=== PATIENT | female | born 1995 | race Caucasian/White ===

== ENCOUNTER 2021-04-07 21:33 | Outpatient (CLI) | payer MEDICAID ==
[~2021-04-07] VITALS: Ht 160 cm; Wt 69.0 kg
[2021-04-07 22:00] VITALS: BP 113/59
[2021-04-07 22:21] LABS: MICROSCOPIC INDICATED
[2021-04-07] MEDS ORDERED: CYCLOBENZAPRINE 10 MG TABLET PO ONE (23:30)
== END 2021-04-07 23:15 | disposition home or self-care (01) ==
LOC: LDOP 21:33
PROVIDERS: ATTEND Obstetrics & Gynecology
DX: O26.893 Other specified pregnancy related conditions, third trimester (principal); M54.5 Low back pain; Z3A.34 34 weeks gestation of pregnancy
CPT/HCPCS: 59025; 81001; 87086

== ENCOUNTER 2021-05-11 01:20 | Inpatient (IN) | payer MEDICAID ==
[~2021-05-11] VITALS: Ht 162.6 cm; Wt 74.0 kg
[2021-05-11 01:20] VITALS: BP 131/75
[2021-05-11] MEDS ORDERED: NEWBORN KIT ONE (01:42)
[2021-05-11] MEDS ORDERED: LIDOCAINE 1%, 20ML ONE (01:42)
[2021-05-11] MEDS ORDERED: MISOPROSTOL 200 MCG TABLET ONE (01:42)
[2021-05-11] MEDS: LACTATED RINGERS 1,000 ML IV SCH ×3 (01:50→17:23)
[2021-05-11] MEDS ORDERED: PLEASE ENTER HEIGHT AND WEIGHT MC SCH (02:00)
[2021-05-11] MEDS ORDERED: OXYTOCIN 30U/ 0.9% NaCL 500ML 500 ML IV PRN (02:00)
[2021-05-11] MEDS ORDERED: FENTANYL PF 100 MCG/2ML IV PRN (02:00)
[2021-05-11] MEDS ORDERED: OXYTOCIN 30U/ 0.9% NaCL 500ML 500 ML IV ONE (02:00)
[2021-05-11] MEDS ORDERED: TERBUTALINE 1 MG/ML, 1ML IVPush PRN (02:00)
[2021-05-11] MEDS ORDERED: ONDANSETRON 2MG/ML, 2ML IVPush PRN (02:00)
[2021-05-11] MEDS ORDERED: TERBUTALINE 1 MG/ML, 1ML SQ PRN (02:00)
[2021-05-11] MEDS ORDERED: CALCIUM CARBONATE 500 MG TAB.CHEW PO PRN ×2 (02:00→09:30)
[2021-05-11] MEDS ORDERED: D5%-LACTATED RINGERS 1,000 ML IV SCH (02:00)
[2021-05-11 02:02] LABS: BASOPHILS % (AUTO) 1 % (0-1); EOSINOPHILS % (AUTO) 0 % (1-7); LYMPHOCYTES % (AUTO) 20 % (22-44); MEAN CORPUSCULAR HEMOGLOBIN 28.5 pg (27.0-34.8); MEAN CORPUSCULAR HGB CONC 33.8 g/dL (32.4-35.8); MEAN PLATELET VOLUME 8.9 fL (7.4-10.4); MONOCYTES % (AUTO) 7 % (2-9); NEUTROPHILS % (AUTO) 72 % (42-75); PLATELET COUNT 296 x10^3/uL (130-400); RED BLOOD COUNT 4.15 x10^6/uL (3.82-5.3); RED CELL DISTRIBUTION WIDTH 14.1 % (9.6-15.2)
[2021-05-11] MEDS: FENTANYL PF 100 MCG/2ML IVPush PRN ×2 (03:09→05:12)
[2021-05-11] MEDS ORDERED: FENTANYL/BUPIV./NS/PF 250 ML EPIDCONT ONE (05:38)
[2021-05-11] MEDS ORDERED: BUPIVACAINE 0.25% ONE (06:05)
[2021-05-11] MEDS ORDERED: MISOPROSTOL 200 MCG TABLET SL PRN (09:30)
[2021-05-11] MEDS ORDERED: OXYTOCIN 30U/ 0.9% NaCL 500ML 500 ML IV SCH (09:30)
[2021-05-11] MEDS ORDERED: SIMETHICONE 80 MG CHEW TAB PO PRN (09:30)
[2021-05-11] MEDS: PRENATAL VIT/IRON/FA 1 EACH TABLET PO SCH (09:30)
[2021-05-11] MEDS ORDERED: OXYcodone/APAP 5/325MG TABLET PO PRN (09:30)
[2021-05-11] MEDS ORDERED: ONDANSETRON 2MG/ML, 2ML IV PRN (09:30)
[2021-05-11] MEDS ORDERED: DOCUSATE 100 MG CAPSULE PO PRN (09:30)
[2021-05-11] MEDS: IBUPROFEN 600 MG TABLET PO PRN ×3 (10:07→22:01)
[2021-05-11 11:30] VITALS: BP 115/76
[2021-05-11] MEDS ORDERED: DIPHENHYDRAMINE 12.5MG/5ML, 10ML UDC PO PRN ×2 (12:00)
[2021-05-11 15:17] VITALS: BP 123/78
[2021-05-11 17:32] LABS: BASOPHILS % (AUTO) 0 % (0-1); EOSINOPHILS % (AUTO) 0 % (1-7); LYMPHOCYTES % (AUTO) 14 % (22-44); MEAN CORPUSCULAR HEMOGLOBIN 28.1 pg (27.0-34.8); MEAN CORPUSCULAR HGB CONC 33.1 g/dL (32.4-35.8); MEAN PLATELET VOLUME 9.1 fL (7.4-10.4); MONOCYTES % (AUTO) 6 % (2-9); NEUTROPHILS % (AUTO) 80 % (42-75); PLATELET COUNT 222 x10^3/uL (130-400); RED BLOOD COUNT 3.69 x10^6/uL (3.82-5.3); RED CELL DISTRIBUTION WIDTH 14.1 % (9.6-15.2)
[2021-05-11 20:00] VITALS: BP 99/63
[2021-05-12] VITALS: BP 108/69
[2021-05-12 04:00] VITALS: BP 112/64
[2021-05-12] MEDS: IBUPROFEN 600 MG TABLET PO PRN ×3 (07:54→20:33)
[2021-05-12] MEDS: PRENATAL VIT/IRON/FA 1 EACH TABLET PO SCH (07:54)
[2021-05-12 08:04] VITALS: BP 118/75
[2021-05-12] MEDS ORDERED: IBUP-1222 PO (08:07)
[2021-05-12 20:00] VITALS: BP 123/86
[2021-05-13] MEDS: IBUPROFEN 600 MG TABLET PO PRN (03:39)
[2021-05-13 07:42] VITALS: BP 112/76
== END 2021-05-13 09:00 | disposition home or self-care (01) | DRG 560 ==
LOC: LDOP 01:20 → LDIP 01:48 → 2NW 11:25
PROVIDERS: ADMIT Obstetrics & Gynecology; ATTEND Obstetrics & Gynecology
PROC: 10E0XZZ Delivery of Products of Conception, External Approach (ICD-10-PCS; principal; 2021-05-11)
PROC: 0HQ9XZZ Repair Perineum Skin, External Approach (ICD-10-PCS; 2021-05-11)
PROC: 3E0R3BZ Introduction of Anesthetic Agent into Spinal Canal, Percutaneous Approach (ICD-10-PCS; 2021-05-11)
PROC: 00HU33Z Insertion of Infusion Device into Spinal Canal, Percutaneous Approach (ICD-10-PCS; 2021-05-11)
DX: O99.344 Other mental disorders complicating childbirth (principal); Z37.0 Single live birth; F32.9 Major depressive disorder, single episode, unspecified; Z20.822 Contact with and (suspected) exposure to COVID-19; Z88.2 Allergy status to sulfonamides; O70.0 First degree perineal laceration during delivery; Z3A.39 39 weeks gestation of pregnancy
CPT/HCPCS: 36415; 85025; 86592; 86850; 86900; 87635; 96374; 96375; 99285; G0378; J2405; J3010; J2590; J7120